=== PATIENT | female | born 1945 | race Caucasian/White ===

== ENCOUNTER 2017-02-16 11:47 | Emergency (ER) | payer MEDICARE ==
[~2017-02-16] VITALS: Ht 162.6 cm; Wt 86.5 kg
[~2017-02-16 11:47] MED LIST: AMLO5TAB2 PO; ASPI-650 PO; ATOR80TA PO; CARV-39 PO; CLON1TAB23 PO; CLOP75TA52 PO; FURO20TA3 PO; ISOS20TA3 PO; LISI-170 PO; METF850T2 PO; NITR0.4T28 SL; PARO10TA3 PO; ZOLP10TA PO
[2017-02-16 11:52] VITALS: BP 157/80
[2017-02-16] MEDS ORDERED: LIDOCAINE 1%, 10ML ONE (11:59)
[2017-02-16] MEDS ORDERED: DIPH,PERTUSS(ACELL),TET VAC/PF 0.5 ML IM-VACC ONE ×2 (12:21→13:00)
[2017-02-16] MEDS ORDERED: LIDOCAINE 1%, 20ML SQ ONE (13:00)
[2017-02-16] MEDS ORDERED: BACITRACIN ZINC OINT 500U/GM, 0.9 GM ONE (13:15)
== END 2017-02-16 13:33 | disposition home or self-care (01) ==
LOC: ED 13:26
DX: S61.412A Laceration without foreign body of left hand, initial encounter (principal); I11.0 Hypertensive heart disease with heart failure; I50.9 Heart failure, unspecified; E11.9 Type 2 diabetes mellitus without complications; I25.810 Atherosclerosis of coronary artery bypass graft(s) without angina pectoris; Z90.710 Acquired absence of both cervix and uterus; Z87.891 Personal history of nicotine dependence; E78.5 Hyperlipidemia, unspecified; W26.0XXA Contact with knife, initial encounter; Y93.89 Activity, other specified; Y92.009 Unspecified place in unspecified non-institutional (private) residence as the place of occurrence of the external cause; Y99.9 Unspecified external cause status
CPT/HCPCS: 12041; 90471; 90715